=== PATIENT | male | born 1975 | race African-American/Black ===

== ENCOUNTER 2020-12-25 00:31 | Emergency (ER) | payer SELFPAY ==
[~2020-12-25] VITALS: Ht 190.5 cm; Wt 100.0 kg
[2020-12-25 00:45] VITALS: BP 154/103
[2020-12-25] MEDS ORDERED: CEPH500T MT (02:23)
[2020-12-25] MEDS ORDERED: SULF1TAB48 MT (02:23)
[2020-12-25] MEDS ORDERED: ACETAMINOPHEN 325MG TABLET PO ONE (02:30)
== END 2020-12-25 02:53 | disposition home or self-care (01) ==
LOC: ER 00:31
DX: L03.113 Cellulitis of right upper limb (principal); L03.011 Cellulitis of right finger; R03.0 Elevated blood-pressure reading, without diagnosis of hypertension
CPT/HCPCS: 99283